=== PATIENT | male | born 1955 | race African-American/Black ===

== ENCOUNTER 2020-03-07 07:09 | Inpatient (IN) | payer BC ==
[2020-03-02 12:46] LABS: ABSOLUTE EOSINOPHILS # (AUTO) 0.2 10^3/uL (0.0-0.6); ABSOLUTE LYMPHOCYTES (AUTO) 2.3 10^3/uL (0.5-4.7); ABSOLUTE MONOCYTES (AUTO) 0.7 10^3/uL (0.1-1.4); ABSOLUTE NEUT (AUTO) 2.2 10^3/uL (1.7-8.2); BASOPHILS % (AUTO) 0.8 % (0-2); EOSINOPHILS % (AUTO) 3.2 % (0-6); HEMATOCRIT 45.1 % (37.9-51.0); HEMOGLOBIN 15.3 g/dL (13.5-17.0); LYMPHOCYTES % (AUTO) 42.4 % (13-45); MEAN CORPUSCULAR HEMOGLOBIN 30.8 pg (27.0-33.4); MEAN CORPUSCULAR HGB CONC 33.9 g/dL (32.0-36.0); MEAN CORPUSCULAR VOLUME 91 fl (80-97); MONOCYTES % (AUTO) 12.4 % (3-13); PLATELET COUNT 229 10^3/uL (150-450); RED BLOOD COUNT 4.97 10^6/uL (4.35-5.55); RED CELL DISTRIBUTION WIDTH 14.3 % (11.5-14.0); SEGMENTED NEUTROPHILS % (AUTO) 41.2 % (42-78); TOTAL CELLS COUNTED % (AUTO) 100 %; WHITE BLOOD COUNT 5.4 10^3/uL (4.0-10.5)
--- NOTE | 2020-03-02 13:02 | RADIOLOGY REPORT (SQ) ---
EXAM DESCRIPTION: CHEST PA/LATERAL IMAGES COMPLETED DATE/TIME: 03/02/2020 12:51 pm REASON FOR STUDY: PRE-OP COMPARISON: 08/07/2013. EXAM PARAMETERS: NUMBER OF VIEWS: two views TECHNIQUE: Digital Frontal and Lateral radiographic views of the chest acquired. RADIATION DOSE: NA LIMITATIONS: none FINDINGS: LUNGS AND PLEURA: No opacities, masses or pneumothorax. No pleural effusion. MEDIASTINUM AND HILAR STRUCTURES: No masses or contour abnormalities. HEART AND VASCULAR STRUCTURES: Heart normal size. No evidence for failure. BONES: No acute findings. HARDWARE: None in the chest. OTHER: No other significant finding. IMPRESSION: NO SIGNIFICANT RADIOGRAPHIC FINDING IN THE CHEST. TECHNICAL DOCUMENTATION: JOB ID: [id number] 2010 [employer]- All Rights Reserved Reading location - IP/workstation name: [email or web address]
[2020-03-02 13:04] LABS: ANION GAP 9 (5-19); BLOOD UREA NITROGEN 15 mg/dL (7-20); CALCIUM 9.9 mg/dL (8.4-10.2); CARBON DIOXIDE 28 mmol/L (22-30); CHLORIDE 102 mmol/L (98-107); GLUCOSE 104 mg/dL (75-110); POTASSIUM 4.2 mmol/L (3.6-5.0)
--- NOTE | 2020-03-02 19:04 | EKG REPORT ---
SEVERITY:- BORDERLINE ECG - SINUS RHYTHM PROBABLE LEFT ATRIAL ABNORMALITY : Confirmed by: Stacie Vargas MD 02-Mar-2020 19:03:40
[~2020-03-07 07:09] MED LIST: CEFAZOLIN 2 GM/D5W RTU 2 GM/50 ML RTUPB IV ONE; CEFAZOLIN 2 GM/D5W RTU 2 GM/50 ML RTUPB IV PRN; LACTATED RINGERS 1000 ML IV PRN; LIDOCAINE 0.5% INJ-PF (5 MG/ML) 50 ML SDV SUBCUT PRN
[2020-03-07] MEDS ORDERED: HEPARIN SOD (PORCINE) 1,000 UNIT/ML 10 ML VIAL ONE (10:14)
[2020-03-07] MEDS ORDERED: BUPIVACAINE INJ/PF LIPOSOME/PF 266 MG/20 ML SDV ONE (10:15)
[2020-03-07] MEDS ORDERED: BACITRACIN INJ 50,000 UNIT VIAL ONE (10:15)
[2020-03-07] MEDS ORDERED: MINERAL OIL (STERILE) 10 ML VIAL ONE (10:17)
[2020-03-07] MEDS ORDERED: ONDANSETRON HCL INJ/PF 4 MG/2 ML SDV ONE ×2 (10:17→12:20)
[2020-03-07] MEDS ORDERED: DEXAMETHASONE SOD PHOSPHATE INJ 4 MG/1 ML VIAL ONE ×2 (10:17→12:20)
[2020-03-07] MEDS ORDERED: PROPOFOL 2,000 MG/200 ML INFUS..BTL IV ONE (10:17)
[2020-03-07] MEDS ORDERED: HYDROMORPHONE HCL INJ/PF 2 MG/ML AMPULE ONE (10:17)
[2020-03-07] MEDS ORDERED: FENTANYL CITRATE INJ/PF 100 MCG/2 ML AMPUL ONE (10:17)
[2020-03-07] MEDS ORDERED: BUPIVACAINE HCL 0.5 % INJ/PF 30 ML SDV ONE (10:19)
[2020-03-07] MEDS ORDERED: MIDAZOLAM 2 MG/2 ML INJ ONE (10:31)
[2020-03-07] MEDS ORDERED: OXYCODONE-ACETAMINOPHEN 5-325 MG TABLET PO PRN ×2 (10:56)
[2020-03-07] MEDS ORDERED: MORPHINE SULFATE 10 MG/ML INJ IV PRN (10:56)
[2020-03-07] MEDS ORDERED: ONDANSETRON HCL INJ/PF 4 MG/2 ML SDV IV PRN (10:56)
[2020-03-07] MEDS ORDERED: PROMETHAZINE HCL INJ 25 MG/1 ML VIAL IV PRN ×2 (10:56)
[2020-03-07] MEDS ORDERED: FENTANYL CITRATE INJ/PF 100 MCG/2 ML AMPUL IV PRN ×3 (10:56)
[2020-03-07] MEDS ORDERED: MEPERIDINE HCL/PF INJ 25 MG/1 ML DISP.SYRIN IV PRN (10:56)
[2020-03-07] MEDS ORDERED: VASOPRESSIN INJ 20 UNIT/1 ML VIAL ONE (11:52)
[2020-03-07] MEDS ORDERED: EPHEDRINE SULFATE INJ 50 MG/1 ML AMPULE ONE (11:52)
[2020-03-07] MEDS ORDERED: METOCLOPRAMIDE HCL INJ/PF 10 MG/2 ML SDV ONE (12:20)
[2020-03-07] MEDS ORDERED: LIDOCAINE 2% INJ-PF (20 MG/ML) 2 ML AMPUL ONE (12:20)
[2020-03-07] MEDS ORDERED: ACETAMINOPHEN 1,000 MG/100 ML RTUPB IV ONE (12:34)
--- NOTE | 2020-03-07 14:42 | Operative Report ---
Operative Report DATE OF SURGERY: 03/07/20 PREOPERATIVE DIAGNOSIS: L3-4 and L4-5 and L5-S1 scoliosis and spondylolisthesis. Degenerative disc disease lumbar spine. Back pain. Instability. Progressive scoliosis. Lumbar radiculitis. Stenosis lumbar spine with neurogenic claudication POSTOPERATIVE DIAGNOSIS: L3-4 and L4-5 and L5-S1 scoliosis and spondylolisthesis. Degenerative disc disease lumbar spine. Back pain. Instability. Progressive scoliosis. Lumbar radiculitis. Stenosis lumbar spine with neurogenic claudication OPERATION: Anterior lateral interbody fusion L3-4 and L4-5 and L5-S1 with interbody spacers as well as posterior fusion and instrumentation robotically assisted at L3-4 L4-5 and L5-S1 as well as left iliac crest aspiration for bone marrow aspirate for concentration to be used and interbody spacers as well as allografting for the interbody spacers. SURGEON: SHELBY MCKEE 1ST DESIGN QUALITY ENGINEER: CHRISSY LOWE ANESTHESIA: GA ESTIMATED BLOOD LOSS: 450 cc of blood loss patient is given back 250 cc of Cell Saver PROCEDURE: Patient is brought into the room placed under general anesthesia received 2 g of Ancef within 1 hour of cut time was placed on the Eddie table medial epicondyles and axillary areas are well-padded. Neuro monitoring leads for SSEP and cranial motor testing are placed on the patient as well as a Gonzalez catheter is placed preoperatively. After appropriate surgical timeout the Friendfer robot is utilized and on the right posterior superior iliac spine a pin is placed and attached to the robot. After obtaining registration imaging in the AP and oblique position and verification 0.5 x 50 mm screws x6 and 7.5 x 40 mm screws x1 and 7.5 x 45 mm screws x1 screws are inserted using portal incisions on the right and the left at L3, L4, L5 and S1 bilaterally. Left iliac crest is aspirated at 2 different sites total of 50 cc of bone marrow aspirate are obtained and concentrated to be used an interbody spacer with the allograft. Attention was then paid to the left sided anterior lateral portal for entry into the disc space which is carried out under navigation guidance upon verification also with x-rays and then stimulation thresholds greater than 17 mA. Upon inserting the portal into the disc space at L3-4 and L4-5 and L5-S1 fluoroscopy was used to verify the position as it did also to verify the screws position. Endplate michael and curettes and brushes are used to carry out a complete discectomy then the verify balloon is inserted to verify good contact with the endplates. Incite cortical fibers/demineralized bone matrix with bone marrow aspirate concentrate are placed anterior in the disc space then the appropriate size mesh spacer is introduced into the interbody. The mesh spacer is soaked in bone marrow aspirate concentrate and is filled with bone graft showing good correction and good containment within the disc space at L3-4 and L4-5 and L5- S1. Upon neuro monitoring testing and cranial motor testing found to be stable then the portal is removed anterior laterally and attention is then paid to the placement of the rods upon using the caliper device the appropriate length rods were determined to be 40 mm rods on the right and on the left those are passed down and locked into position and final tightened. Then the tabs are removed and the portals are irrigated with copious amounts of irrigation and the posterior superior iliac spine pin connected to the robot is removed as well and the deep and superficial tissues were infiltrated with 1.3% Exparel 20 cc mixed with 20 cc of 0.5% bupivacaine plain. The portals are closed using 2-0 Vicryl and then Dermabond and Steri-Strips then 4 x 4's were used to cover the wounds on the right and the left and dressed with coverall tape. Please note that this procedure could not be done without the assistance of David Atkins working to assist with the placement of the screws positioning of the robot carrying out the aspiration through the left side iliac crest aspiration please also note that the iliac crest aspiration is carried out on the left side through a separate incision. David Lowe was instrumental throughout this whole process and I could not have done this procedure without his assistance as mentioned above.
[2020-03-07] MEDS ORDERED: ACETAMINOPHEN 325 MG TABLET PO PRN (14:44)
[2020-03-07] MEDS ORDERED: HYDROMORPHONE HCL INJ/PF 2 MG/ML AMPULE IV PRN (14:44)
[2020-03-07] MEDS ORDERED: PROMETHAZINE HCL INJ 25 MG/1 ML VIAL IM PRN (14:44)
[2020-03-07] MEDS ORDERED: ACETAMINOPHEN 650 MG SUPP.RECT PR PRN (14:44)
[2020-03-07] MEDS ORDERED: RINGERS SOLUTION,LACTATED 1,000 ML IV PRN (14:44)
[2020-03-07] MEDS ORDERED: PROMETHAZINE HCL 25 MG TABLET PO PRN (14:44)
[2020-03-07] MEDS ORDERED: DIPHENHYDRAMINE HCL 50 MG/ML VIAL IV PRN (14:44)
[2020-03-07] MEDS ORDERED: DIPHENHYDRAMINE HCL 25 MG CAPSULE PO PRN (14:44)
[2020-03-07] MEDS ORDERED: METHOCARBAMOL INJ/PF 1000 MG/10 ML SDV ONE (14:52)
--- NOTE | 2020-03-07 15:56 | RADIOLOGY REPORT (SQ) ---
EXAM DESCRIPTION: L SPINE 2 VIEWS; NO CHG FLUORO IMAGES COMPLETED DATE/TIME: 03/07/2020 2:55 pm REASON FOR STUDY: LUMBAR FUSION MULTIPLE LEVELS ASSISTED WITH FLUORO IN OR M54.5 LOW BACK PAIN M51. 36 OTHER INTERVERTEBRAL DISC DEGENERATION, LUMBAR REGION M54.40 LUMBAGO WITH SCIATICA, UNSPECIFIED SIDE COMPARISON: None. FLUOROSCOPY TIME: 3.5 minutes 4 fluoroscopic images images saved to PACS. TECHNIQUE: Intra-operative images acquired during surgical procedure to evaluate progress. NUMBER OF IMAGES: 4 fluoroscopic images LIMITATIONS: None. FINDINGS: Intra procedural imaging and fluoroscopy during lumbar fusion IMPRESSION: IMAGE(S) OBTAINED DURING PROCEDURE. COMMENT: Quality ID [id number]: Final reports for procedures using fluoroscopy that document radiation exp osure indices, or exposure time and number of fluorographic images (if radiation exposure indices are not available) Please consult full operative report of the attending physician for description of the procedure. TECHNICAL DOCUMENTATION: JOB ID: [id number] 2010 [employer]- All Rights Reserved Reading location - IP/workstation name: [email or web address]
--- NOTE | 2020-03-07 15:56 | RADIOLOGY REPORT (SQ) ---
EXAM DESCRIPTION: L SPINE 2 VIEWS; NO CHG FLUORO IMAGES COMPLETED DATE/TIME: 03/07/2020 2:55 pm REASON FOR STUDY: LUMBAR FUSION MULTIPLE LEVELS ASSISTED WITH FLUORO IN OR M54.5 LOW BACK PAIN M51. 36 OTHER INTERVERTEBRAL DISC DEGENERATION, LUMBAR REGION M54.40 LUMBAGO WITH SCIATICA, UNSPECIFIED SIDE COMPARISON: None. FLUOROSCOPY TIME: 3.5 minutes 4 fluoroscopic images images saved to PACS. TECHNIQUE: Intra-operative images acquired during surgical procedure to evaluate progress. NUMBER OF IMAGES: 4 fluoroscopic images LIMITATIONS: None. FINDINGS: Intra procedural imaging and fluoroscopy during lumbar fusion IMPRESSION: IMAGE(S) OBTAINED DURING PROCEDURE. COMMENT: Quality ID [id number]: Final reports for procedures using fluoroscopy that document radiation exp osure indices, or exposure time and number of fluorographic images (if radiation exposure indices are not available) Please consult full operative report of the attending physician for description of the procedure. TECHNICAL DOCUMENTATION: JOB ID: [id number] 2010 [employer]- All Rights Reserved Reading location - IP/workstation name: [email or web address]
[2020-03-07] MEDS: HYDROCODONE/ACETAMINOPHEN 5-325 MG TABLET PO PRN ×2 (16:22→21:04)
[2020-03-07] MEDS: ONDANSETRON HCL INJ/PF 4 MG/2 ML SDV IV PRN ×2 (16:23→22:39)
[2020-03-07] MEDS ORDERED: METFORMIN HCL 500 MG TABLET PO SCH (18:00)
[2020-03-07] MEDS ORDERED: (PENDING PHARMACY ID) (Gabapentin [Gabapentin] 800 MG) PO SCH (18:00)
[2020-03-07] MEDS: SENNOSIDES/DOCUSATE 8.6-50 MG 1 EACH TABLET PO SCH (18:29)
[2020-03-07] MEDS: TIZANIDINE HCL 4 MG TABLET PO SCH (18:30)
[2020-03-07] MEDS: MORPHINE SULFATE 10 MG/ML INJ IM PRN ×2 (18:36→22:37)
[2020-03-07] MEDS: CEFAZOLIN SODIUM 2 GM in DEXTROSE 5%-WATER 100 ML IV SCH (21:04)
[2020-03-07] MEDS: GABAPENTIN 400 MG CAPSULE PO SCH (21:05)
[2020-03-07] MEDS ORDERED: SIMVASTATIN 10 MG TABLET PO SCH (22:00)
[2020-03-07] MEDS ORDERED: CEFAZOLIN 2 GM/D5W RTU 2 GM/50 ML RTUPB IV SCH (22:00)
[2020-03-07] MEDS: TEMAZEPAM 15 MG CAPSULE PO SCH (22:37)
[2020-03-08] MEDS: OXYCODONE-ACETAMINOPHEN 5-325 MG TABLET PO PRN ×3 (01:25→10:18)
[2020-03-08] MEDS: MORPHINE SULFATE 10 MG/ML INJ IM PRN (03:03)
[2020-03-08] MEDS: CEFAZOLIN SODIUM 2 GM in DEXTROSE 5%-WATER 100 ML IV SCH (05:27)
[2020-03-08 05:44] LABS: HEMATOCRIT 40.4 % (37.9-51.0); HEMOGLOBIN 13.9 g/dL (13.5-17.0); MEAN CORPUSCULAR HEMOGLOBIN 30.7 pg (27.0-33.4); MEAN CORPUSCULAR HGB CONC 34.3 g/dL (32.0-36.0); MEAN CORPUSCULAR VOLUME 90 fl (80-97); PLATELET COUNT 190 10^3/uL (150-450); RED BLOOD COUNT 4.51 10^6/uL (4.35-5.55); RED CELL DISTRIBUTION WIDTH 14.2 % (11.5-14.0); WHITE BLOOD COUNT 7.2 10^3/uL (4.0-10.5)
[2020-03-08] MEDS: ONDANSETRON HCL INJ/PF 4 MG/2 ML SDV IV PRN (07:43)
[2020-03-08] MEDS: TAMSULOSIN HCL 0.4 MG CAP.SR.24H PO SCH (07:52)
[2020-03-08] MEDS ORDERED: POTASSIUM CHLORIDE 20 MEQ PACKET PO SCH (10:00)
[2020-03-08] MEDS ORDERED: PANTOPRAZOLE SODIUM 20 MG TABLET.DR PO SCH (10:00)
[2020-03-08] MEDS ORDERED: HYDROCHLOROTHIAZIDE 25 MG TABLET PO SCH (10:00)
[2020-03-08] MEDS ORDERED: POTASSIUM CHLORIDE 10 MEQ TABLET.ER PO SCH ×2 (10:00)
[2020-03-08] MEDS ORDERED: DIAZEPAM 2 MG TABLET PO SCH (10:00)
[2020-03-08] MEDS ORDERED: (PENDING PHARMACY ID) (Losartan Potassium [Losartan Potassium] 100 MG) PO SCH (10:00)
[2020-03-08] MEDS ORDERED: TAMSULOSIN HCL 0.4 MG CAP.SR.24H PO SCH (10:00)
[2020-03-08] MEDS: LOSARTAN POTASSIUM 50 MG TABLET PO SCH (10:16)
[2020-03-08] MEDS: FINASTERIDE 5 MG TABLET PO SCH (10:16)
[2020-03-08] MEDS: SENNOSIDES/DOCUSATE 8.6-50 MG 1 EACH TABLET PO SCH ×2 (10:17→17:25)
[2020-03-08] MEDS: TIZANIDINE HCL 4 MG TABLET PO SCH ×3 (10:17→17:25)
[2020-03-08] MEDS: GABAPENTIN 400 MG CAPSULE PO SCH ×2 (10:18→21:22)
[2020-03-08] MEDS: DULOXETINE HCL 30 MG CAPSULE.DR PO SCH (10:18)
[2020-03-08] MEDS: DIAZEPAM 5 MG TABLET PO SCH (10:18)
[2020-03-08] MEDS: PANTOPRAZOLE SODIUM 20 MG TABLET.DR PO SCH (10:25)
--- NOTE | 2020-03-08 13:58 | PDOC PROGRESS REPORT ---
Subjective Progress Note for:: 03/08/20 Subjective:: Patient is laying bed reporting that he is feeling well. He reports that he had just voided two urinals full of urine. He reports that he has not yet eaten but has been able to ambulate with PT. Reason For Visit: LUMBAR SPONDYLOLISTHESIS,LUMBAR STENOSIS,LUMBAR Physical Exam Vital Signs: Temp Pulse Resp BP Pulse Ox 98.9 F 103 H 18 107/59 L 94 03/08/20 11:30 03/08/20 11:30 03/08/20 11:30 03/08/20 11:30 03/08/20 11:30 Intake & Output 03/07/20 03/08/20 03/09/20 06:59 06:59 06:59 Intake Total 4175 380 Output Total 2875 Balance 1300 380 Weight 98.8 kg General appearance: PRESENT: no acute distress, cooperative, well-nourished Head exam: PRESENT: atraumatic Eye exam: PRESENT: EOMI, PERRLA Ear exam: PRESENT: normal external ear exam Mouth exam: PRESENT: moist Gentrourinary exam: PRESENT: other - catheter has been removed Musculoskeletal exam: PRESENT: other - Moves feet without pain or difficulty, calves are soft and non-tender. surgical dressing is intact with no drainage. normal post operative tenderness is noted. Neurological exam: PRESENT: alert, awake Results Laboratory Results: 03/08/20 04:31 03/07/20 07:39 03/08/20 04:31 WBC 7.2 RBC 4.51 Hgb 13.9 Hct 40.4 MCV 90 MCH 30.7 MCHC 34.3 RDW 14.2 H Plt Count 190 Impressions: Chest X-Ray 03/02/20 00:00 IMPRESSION: NO SIGNIFICANT RADIOGRAPHIC FINDING IN THE CHEST. Fluoroscopy 03/07/20 00:00 IMPRESSION: IMAGE(S) OBTAINED DURING PROCEDURE. Lumbar Spine X-Ray 03/07/20 00:00 IMPRESSION: IMAGE(S) OBTAINED DURING PROCEDURE. Assessment & Plan - Time Time Spent with patient: Less than 15 minutes - Plan Summary Plan Summary: POD 1 : Patient is doing well Cont. with PT per protocol as tolerated consider D/C home tomorrow if cleared by PT - patient reports some difficulty with stairs. Caregiver reports that she was going to get him a cheeseburger to try and get him to eat.
[2020-03-08] MEDS ORDERED: TAMSULOSIN HCL 0.4 MG CAP.SR.24H PO ONE (15:30)
[2020-03-08 16:02] LABS: ABSOLUTE LYMPHOCYTES (AUTO) 1.2 10^3/uL (0.5-4.7); TOTAL CELLS COUNTED % (AUTO) 100 %
[2020-03-08 16:19] LABS: ALBUMIN 3.7 g/dL (3.5-5.0); ALKALINE PHOSPHATASE 48 U/L (38-126); ANION GAP 8 (5-19); ASPARTATE AMINO TRANSFERASE 80 U/L (17-59); BILIRUBIN,TOTAL 1.1 mg/dL (0.2-1.3); BLOOD UREA NITROGEN 17 mg/dL (7-20); CALCIUM 9.4 mg/dL (8.4-10.2); CARBON DIOXIDE 25 mmol/L (22-30); CHLORIDE 102 mmol/L (98-107); GLUCOSE 115 mg/dL (75-110); POTASSIUM 3.8 mmol/L (3.6-5.0); TOTAL PROTEIN 6.3 g/dL (6.3-8.2)
--- NOTE | 2020-03-08 16:19 | RADIOLOGY REPORT (SQ) ---
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 NUMBER OF VIEWS: One view. TECHNIQUE: Supine radiographic image of the abdomen acquired. LIMITATIONS: None. FINDINGS: BOWEL GAS PATTERN: Normal bowel gas pattern. No dilated loops. CALCIFICATIONS: No suspicious calcifications. SOFT TISSUES: No gross mass or suggestion of organomegaly. HARDWARE: Surgical clips. Hardware in the spine. BONES: No acute fracture. No worrisome bone lesions. OTHER: No other significant finding. IMPRESSION: NO RADIOGRAPHIC EVIDENCE FOR ACUTE ABDOMINAL DISEASE. TECHNICAL DOCUMENTATION: JOB ID: [id number] 2010 [employer]- All Rights Reserved Reading location - IP/workstation name: [email or web address]
[2020-03-08 16:20] LABS: ABSOLUTE NEUT (AUTO) 5.6 10^3/uL (1.7-8.2); BASOPHILS % (AUTO) 0.3 % (0-2); EOSINOPHILS % (AUTO) 0.3 % (0-6); HEMATOCRIT 38.9 % (37.9-51.0); HEMOGLOBIN 12.9 g/dL (13.5-17.0); LYMPHOCYTES % (AUTO) 14.9 % (13-45); MEAN CORPUSCULAR HGB CONC 33.1 g/dL (32.0-36.0); MEAN CORPUSCULAR VOLUME 91 fl (80-97); MONOCYTES % (AUTO) 12.5 % (3-13); PLATELET COUNT 186 10^3/uL (150-450); RED BLOOD COUNT 4.29 10^6/uL (4.35-5.55); RED CELL DISTRIBUTION WIDTH 13.9 % (11.5-14.0); WHITE BLOOD COUNT 7.8 10^3/uL (4.0-10.5)
[2020-03-08] MEDS ORDERED: MAGNESIUM SULFATE/D5W 1 GM/100 ML RTUPB IV ONE (16:28)
[2020-03-08] MEDS ORDERED: NORMAL SALINE 1000 ML 500 ML IV ONE (16:29)
[2020-03-08] MEDS ORDERED: DEXTROSE 40% GEL 15 GM TUBE PO PRN ×2 (16:37)
[2020-03-08] MEDS ORDERED: DEXTROSE 50%-WATER 25 GM/50 ML DISP.SYRIN IV PRN ×2 (16:37)
[2020-03-08] MEDS ORDERED: GLUCAGON,HUMAN RECOMB 1 MG INJ SUBCUT PRN (16:37)
[2020-03-08] MEDS ORDERED: HYDROCODONE/ACETAMINOPHEN 5-325 MG TABLET PO PRN (16:43)
--- NOTE | 2020-03-08 17:06 | PDOC CONSULTATION ---
Consultation Consult Date: 03/08/20 Provider Consulted: CHARO TRIANA Consult reason:: hypotension History of Present Illness Admission Date/PCP: 03/07/20 07:09 GIBRAN GARCIA MD Patient complains of: hypotension History of Present Illness: LUIS ONEIL is a 64 year old male with a past medical history significant for HTN, HLD, DM2, DDD s/p lumbar fusion by [facility] on 03/07/20. He is POD #1. The hospitalist service is consulted after rapid response was called for hypotension (80/50) noted after the patient appeared to have pre-syncopal symptoms while up to rest room. The patient was provided an IVF bolus (1L LR) with improvement of BP to 108/70 partially through he bolus. At time of my visit, patient remains diaphoretic and fatigued. His primary complaint presently is back pain. He reports anorexia, mild nausea without emesis, frequent burping and no flatus or passage of stool since prior to his surgery. He reports generalized improvement that is slightly improved following placement of rowley catheter and immediate removal of ~150ml. KUB shows dilated colon but without acute findings. CBC shows post operative anemia (Hgb 15-> 13-> 12). Chemistry demonstrates PAYAM (Cr 1.26-> 1.65). EKG is NSR w/o ST segment changes or acute findings. Troponin is nml Past Medical History Cardiac Medical History: Reports: Hyperlipidema, Hypertension Denies: Congestive Heart Failure, Myocardial Infarction Pulmonary Medical History: Reports: Sleep Apnea - CPAP EENT Medical History: Reports: None Neurological Medical History: Denies: Ischemic CVA, Seizures Endocrine Medical History: Reports: Diabetes Mellitus Type 2, Obesity Denies: Hyperthyroidism, Hypothyroidism Renal/ Medical History: Reports: None Malignancy Medical History: Reports: None Denies: Lung Cancer GI Medical History: Reports: Gastroesophageal Reflux Disease Denies: Crohn's Disease, Hiatal Hernia Musculoskeltal Medical History: Reports: Arthritis Denies: Fibromyalgia Skin Medical History: Reports: None Psychiatric Medical History: Denies: Depression, Tobacco Dependency Traumatic Medical History: Reports: None Hematology: Reports: None Infectious Medical History: Reports: None Past Surgical History Past Surgical History: Reports: Orthopedic Surgery - neck 07/2013 Social History Information Source: Patient Lives with: Spouse/Significant other Smoking Status: Never Smoker Frequency of Alcohol Use: Occasional Hx Recreational Drug Use: No Hx Prescription Drug Abuse: No - Advance Directive Resuscitation Status: Full Code Family History Family History: Reviewed & Not Pertinent, Hyperlipidemia, Hypertension Parental Family History Reviewed: Yes Children Family History Reviewed: Yes Sibling(s) Family History Reviewed.: Yes Medication/Allergy Home Medications: Finasteride [Proscar 5 mg Tablet] 5 mg PO DAILY 06/03/12 Potassium Chloride 8 meq PO DAILY 06/03/12 Cyclobenzaprine HCl [Flexeril 10 mg Tablet] 10 mg PO BID PRN 06/06/12 Diazepam [Valium] 5 mg PO DAILY 08/30/15 Duloxetine HCl [Cymbalta] 60 mg PO DAILY 08/30/15 Omeprazole 20 mg PO DAILY 08/30/15 Hydrochlorothiazide 25 mg PO DAILY 08/31/15 Losartan Potassium 100 mg PO DAILY 08/31/15 Baclofen [Baclofen 10 mg Tablet] 10 mg PO DAILY 03/02/20 Gabapentin 800 mg PO BID 03/02/20 Meclizine HCl 12.5 mg PO PRN PRN 03/02/20 Metaxalone [Metaxall] 800 mg PO DAILY 03/02/20 Tamsulosin HCl [Flomax] 0.4 mg PO DAILY 03/02/20 Temazepam [Restoril 15 mg Capsule] 15 mg PO QHS 03/02/20 Metformin HCl [Metformin HCl ER] 1,000 mg PO QPM 03/07/20 Metformin HCl [Metformin HCl ER] 500 mg PO QAM 03/07/20 Simvastatin [Zocor 40 mg Tablet] 40 mg PO QHS 03/07/20 Allergies/Adverse Reactions: No Known Allergies Allergy (Verified 03/07/20 07:43) Review of Systems Constitutional: PRESENT: weakness. ABSENT: chills, fever(s), headache(s), weight gain, weight loss Eyes: ABSENT: visual disturbances Ears: ABSENT: hearing changes Cardiovascular: ABSENT: chest pain, dyspnea on exertion, edema, orthropnea, palpitations Respiratory: ABSENT: cough, hemoptysis Gastrointestinal: PRESENT: abdominal pain, bloating, constipation, nausea. ABSENT: diarrhea, hematemesis, hematochezia, vomiting Genitourinary: ABSENT: dysuria, hematuria Musculoskeletal: PRESENT: back pain. ABSENT: joint swelling Integumentary: ABSENT: rash, wounds Neurological: ABSENT: abnormal gait, abnormal speech, confusion, dizziness, focal weakness, syncope Psychiatric: ABSENT: anxiety, depression, homidical ideation, suicidal ideation Endocrine: ABSENT: cold intolerance, heat intolerance, polydipsia, polyuria Hematologic/Lymphatic: ABSENT: easy bleeding, easy bruising Physical Exam Vital Signs: Temp Pulse Resp BP Pulse Ox 98.9 F 103 H 18 107/59 L 94 03/08/20 11:30 03/08/20 11:30 03/08/20 11:30 03/08/20 11:30 03/08/20 11:30 Intake & Output 03/07/20 03/08/20 03/09/20 06:59 06:59 06:59 Intake Total 4175 380 Output Total 2875 Balance 1300 380 Weight 98.8 kg General appearance: PRESENT: no acute distress, cooperative, well-developed, well-nourished Head exam: PRESENT: atraumatic, normocephalic Eye exam: PRESENT: conjunctiva pink, EOMI, PERRLA. ABSENT: scleral icterus Ear exam: PRESENT: normal external ear exam Mouth exam: PRESENT: moist, tongue midline Respiratory exam: PRESENT: clear to auscultation jessica, symmetrical, unlabored. ABSENT: rales, rhonchi, wheezes Cardiovascular exam: PRESENT: RRR, +S1, +S2. ABSENT: diastolic murmur, rubs, systolic murmur Pulses: PRESENT: normal dorsalis pedis pul Vascular exam: PRESENT: normal capillary refill GI/Abdominal exam: PRESENT: distended, firm, hyperactive bowel sounds, tenderness. ABSENT: guarding, mass, organolmegaly, rebound Rectal exam: PRESENT: deferred Extremities exam: PRESENT: full ROM. ABSENT: calf tenderness, clubbing, pedal edema Neurological exam: PRESENT: alert, awake, oriented to person, oriented to place, oriented to time, oriented to situation, CN II-XII grossly intact. ABSENT: motor sensory deficit Psychiatric exam: PRESENT: appropriate affect, normal mood. ABSENT: homicidal ideation, suicidal ideation Skin exam: PRESENT: dry, intact, warm, other - diaphoretic. ABSENT: cyanosis, rash Results Laboratory Results: 03/08/20 04:31 WBC 7.2 RBC 4.51 Hgb 13.9 Hct 40.4 MCV 90 MCH 30.7 MCHC 34.3 RDW 14.2 H Plt Count 190 Impressions: Chest X-Ray 03/02/20 00:00 IMPRESSION: NO SIGNIFICANT RADIOGRAPHIC FINDING IN THE CHEST. Fluoroscopy 03/07/20 00:00 IMPRESSION: IMAGE(S) OBTAINED DURING PROCEDURE. Lumbar Spine X-Ray 03/07/20 00:00 IMPRESSION: IMAGE(S) OBTAINED DURING PROCEDURE. Assessment and Plan - Diagnosis (1) PAYAM (acute kidney injury) Is this a current diagnosis for this admission?: Yes Plan: Likely prerenal secondary to poor p.o. intake and hypotension. He is received a 1 L IV fluid bolus. We will provide additional IV fluids. Avoid nephrotoxic medications as able. Follow-up chemistry. (2) Hypotension Qualifiers: Hypotension type: unspecified hypotension type Qualified Code(s): I95.9 - Hypotension, unspecified Is this a current diagnosis for this admission?: Yes Plan: IV fluid bolus followed by maintenance fluids. Orthostatic blood pressures every shift. Fall precautions. About the code temperature midway through. (3) Pre-syncope Is this a current diagnosis for this admission?: Yes Plan: Likely vasovagal secondary to abdominal distention, multiple sedating medications, pain related to recent surgery, and urinary retention. EKG is benign. Initial troponin is negative; will continue to trend. Remaining management as above. (4) HTN (hypertension) Is this a current diagnosis for this admission?: Yes Plan: Home antihypertensives currently on hold secondary to hypotension/presyncopal episode. Monitor for blood pressure and resume once appropriate. (5) HLD (hyperlipidemia) Is this a current diagnosis for this admission?: Yes Plan: Home dose atorvastatin. (6) Diabetes Qualifiers: Diabetes mellitus type: type 2 Diabetes mellitus halfway insulin use: without halfway use Is this a current diagnosis for this admission?: Yes Plan: Holding oral medications while admitted. Accu-Cheks before meals and at bedtime with Humalog for sliding scale coverage. Hypoglycemia protocol in place. (7) Fusion of lumbar spine Is this a current diagnosis for this admission?: Yes Plan: Primary management per Dr. Cuellar. - Time Time Spent with patient: 35 or more minutes Medications reviewed and adjusted accordingly: Yes Anticipated discharge: Home Within: within 48 hours
[2020-03-08] MEDS: HYDROCODONE/ACETAMINOPHEN 5-325 MG TABLET PO PRN ×2 (17:24→23:24)
--- NOTE | 2020-03-08 18:41 | EKG REPORT ---
SEVERITY:- ABNORMAL ECG - SINUS RHYTHM PROBABLE INFERIOR INFARCT, POSTERIOR WALL INFARCT, OLD : Confirmed by: Holden Granados MD 08-Mar-2020 18:41:21
[2020-03-08] MEDS: TEMAZEPAM 15 MG CAPSULE PO SCH (21:22)
[2020-03-08] MEDS: INSULIN LISPRO 100 UNIT/ML 3 ML VIAL SUBCUT SCH (21:30)
[2020-03-08] MEDS: NORMAL SALINE 1000 ML 1,000 ML IV PRN (23:24)
[2020-03-09] MEDS: HYDROCODONE/ACETAMINOPHEN 5-325 MG TABLET PO PRN ×3 (05:24→14:56)
[2020-03-09] MEDS: PANTOPRAZOLE SODIUM 20 MG TABLET.DR PO SCH (05:25)
[2020-03-09] MEDS: INSULIN LISPRO 100 UNIT/ML 3 ML VIAL SUBCUT SCH ×4 (07:40→22:11)
[2020-03-09] MEDS: NORMAL SALINE 1000 ML 1,000 ML IV PRN ×2 (08:15→22:14)
--- NOTE | 2020-03-09 08:21 | PDOC PROGRESS REPORT ---
Subjective Progress Note for:: 03/08/20 Reason For Visit: LUMBAR SPONDYLOLISTHESIS,LUMBAR STENOSIS,LUMBAR Physical Exam Vital Signs: Temp Pulse Resp BP Pulse Ox 98.7 F 101 H 18 111/72 98 03/09/20 04:59 03/09/20 04:59 03/09/20 04:59 03/09/20 04:59 03/09/20 04:59 Intake & Output 03/08/20 03/09/20 03/10/20 06:59 06:59 06:59 Intake Total 4175 2730 1000 Output Total 2875 2300 Balance 7535 719 2860 Weight 98.8 kg 101.8 kg General appearance: PRESENT: no acute distress, cooperative Musculoskeletal exam: PRESENT: other - dressing saturated with blood Results Laboratory Results: 03/08/20 15:44 03/08/20 15:44 03/08/20 03/08/20 15:44 15:44 WBC 7.8 RBC 4.29 L Hgb 12.9 L Hct 38.9 MCV 91 MCH 30.0 MCHC 33.1 RDW 13.9 Plt Count 186 Seg Neutrophils % 72.0 Sodium 135.0 L Potassium 3.8 Chloride 102 Carbon Dioxide 25 Anion Gap 8 BUN 17 Creatinine 1.65 H Est GFR ( Amer) 51 L Glucose 115 H Calcium 9.4 Magnesium 1.5 L Total Bilirubin 1.1 AST 80 H Alkaline Phosphatase 48 Total Protein 6.3 Albumin 3.7 03/08/20 15:44 Troponin I < 0.012 Impressions: Chest X-Ray 03/02/20 00:00 IMPRESSION: NO SIGNIFICANT RADIOGRAPHIC FINDING IN THE CHEST. Fluoroscopy 03/07/20 00:00 IMPRESSION: IMAGE(S) OBTAINED DURING PROCEDURE. Lumbar Spine X-Ray 03/07/20 00:00 IMPRESSION: IMAGE(S) OBTAINED DURING PROCEDURE. KUB X-Ray 03/08/20 00:00 IMPRESSION: NO RADIOGRAPHIC EVIDENCE FOR ACUTE ABDOMINAL DISEASE. Assessment & Plan - Time Time Spent with patient: Less than 15 minutes - Plan Summary Plan Summary: POD 1 Returned to bedside for dressing change - dressing was taken down and new applied. no active bleeding is noted Rapid responce team was called - initial assessment is vagal response appreciate hospitalist input. will cont. to follow
--- NOTE | 2020-03-09 09:08 | PDOC DISCHARGE SUMMARY ---
General - Admit/Disc Date/PCP Admission Date/Primary Care Provider: 03/07/20 07:09 Discharge Date: 03/09/20 - Discharge Diagnosis Final Diagnosis: Status post L3-4 L4-5 L5-S1 fusion with instrumentation interbody spacers and allograft. - Additional Information Resuscitation Status: Full Code Discharge Diet: As Tolerated Discharge Activity: No Driving, No Lifting Over 10 Pounds, No Lifting/Push/Pulling Referrals: GIBRAN GARCIA MD [Primary Care Provider] - Prescriptions: Oxycodone HCl [Roxicodone] 5 mg PO Q4HP PRN 7 Days #40 tablet PRN Reason: For Pain Scale 3-5 Tizanidine HCl [Zanaflex 4 mg Tablet] 4 mg PO TID 30 Days #90 tablet Home Medications: Finasteride [Proscar 5 mg Tablet] 5 mg PO DAILY 06/03/12 Potassium Chloride 8 meq PO DAILY 06/03/12 Duloxetine HCl [Cymbalta] 60 mg PO DAILY 08/30/15 Omeprazole 20 mg PO DAILY 08/30/15 Hydrochlorothiazide 25 mg PO DAILY 08/31/15 Losartan Potassium 100 mg PO DAILY 08/31/15 Gabapentin 800 mg PO BID 03/02/20 Meclizine HCl 12.5 mg PO PRN PRN 03/02/20 Metaxalone [Metaxall] 800 mg PO DAILY 03/02/20 Tamsulosin HCl [Flomax] 0.4 mg PO DAILY 03/02/20 Temazepam [Restoril 15 mg Capsule] 15 mg PO QHS 03/02/20 Metformin HCl [Metformin HCl ER] 1,000 mg PO QPM 03/07/20 Metformin HCl [Metformin HCl ER] 500 mg PO QAM 03/07/20 Simvastatin [Zocor 40 mg Tablet] 40 mg PO QHS 03/07/20 Acetaminophen [Tylenol 325 mg Tablet] 650 mg PO Q6HP PRN tablet 03/09/20 Finasteride [Proscar 5 mg Tablet] 5 mg PO DAILY tablet 03/09/20 Glucagon,Human Recombinant [Glucagen Inj 1 mg Vial] 1 mg SUBCUT PRN PRN vial 03/09/20 Insulin Lispro [Humalog Insulin (Lispro) 100 unit/mL] 0 - 12 unit SUBCUT ACHS u nit 03/09/20 Lidocaine [Lidoderm 5% (700 mg) Transdermal Patch] 1 patch TP DAILY adh..patch 03/09/20 Oxycodone HCl [Roxicodone] 5 mg PO Q4HP PRN 7 Days #40 tablet 03/09/20 Tizanidine HCl [Zanaflex 4 mg Tablet] 4 mg PO TID 30 Days #90 tablet 03/09/20 History of Present Illiness History of Present Illness: LUIS ONEIL is a 64 year old male Physical Exam Vital Signs: Temp Pulse Resp BP Pulse Ox 98.3 F 93 16 129/73 H 97 03/09/20 07:28 03/09/20 07:28 03/09/20 07:28 03/09/20 07:28 03/09/20 07:28 Intake & Output 03/08/20 03/09/20 03/10/20 06:59 06:59 06:59 Intake Total 4175 2730 1000 Output Total 2875 2300 Balance 1050 742 7630 Weight 98.8 kg 101.8 kg Results Laboratory Results: WBC 7.8 10^3/uL (4.0-10.5) 03/08/20 15:44 RBC 4.29 10^6/uL (4.35-5.55) L 03/08/20 15:44 Hgb 12.9 g/dL (13.5-17.0) L 03/08/20 15:44 Hct 38.9 % (37.9-51.0) 03/08/20 15:44 MCV 91 fl (80-97) 03/08/20 15:44 MCH 30.0 pg (27.0-33.4) 03/08/20 15:44 MCHC 33.1 g/dL (32.0-36.0) 03/08/20 15:44 RDW 13.9 % (11.5-14.0) 03/08/20 15:44 Plt Count 186 10^3/uL (150-450) 03/08/20 15:44 Lymph % (Auto) 14.9 % (13-45) 03/08/20 15:44 Foster % (Auto) 12.5 % (3-13) 03/08/20 15:44 Eos % (Auto) 0.3 % (0-6) 03/08/20 15:44 Baso % (Auto) 0.3 % (0-2) 03/08/20 15:44 Absolute Neuts (auto) 5.6 10^3/uL (1.7-8.2) 03/08/20 15:44 Absolute Lymphs (auto) 1.2 10^3/uL (0.5-4.7) 03/08/20 15:44 Absolute Monos (auto) 1.0 10^3/uL (0.1-1.4) 03/08/20 15:44 Absolute Eos (auto) 0.0 10^3/uL (0.0-0.6) 03/08/20 15:44 Absolute Basos (auto) 0.0 10^3/uL (0.0-0.2) 03/08/20 15:44 Seg Neutrophils % 72.0 % (42-78) 03/08/20 15:44 Sodium 135.0 mmol/L (137-145) L 03/08/20 15:44 Potassium 3.8 mmol/L (3.6-5.0) 03/08/20 15:44 Chloride 102 mmol/L (98-107) 03/08/20 15:44 Carbon Dioxide 25 mmol/L (22-30) 03/08/20 15:44 Anion Gap 8 (5-19) 03/08/20 15:44 BUN 17 mg/dL (7-20) 03/08/20 15:44 Creatinine 1.65 mg/dL (0.52-1.25) H 03/08/20 15:44 Est GFR ( Amer) 51 (>60) L 03/08/20 15:44 Est GFR (MDRD) Non-Af 42 (>60) L 03/08/20 15:44 Glucose 115 mg/dL (75-110) H 03/08/20 15:44 POC Glucose 118 mg/dL (70-110) H 03/09/20 06:38 Calcium 9.4 mg/dL (8.4-10.2) 03/08/20 15:44 Magnesium 1.5 mg/dL (1.6-2.3) L 03/08/20 15:44 Total Bilirubin 1.1 mg/dL (0.2-1.3) 03/08/20 15:44 Direct Bilirubin 0.0 mg/dL (0.0-0.4) 03/08/20 15:44 Neonat Total Bilirubin Not Reportable 03/08/20 15:44 Neonat Direct Bilirubin Not Reportable 03/08/20 15:44 Neonat Indirect Bili Not Reportable 03/08/20 15:44 AST 80 U/L (17-59) H 03/08/20 15:44 ALT 38 U/L (<50) 03/08/20 15:44 Alkaline Phosphatase 48 U/L (38-126) 03/08/20 15:44 Troponin I < 0.012 ng/mL 03/08/20 15:44 Total Protein 6.3 g/dL (6.3-8.2) 03/08/20 15:44 Albumin 3.7 g/dL (3.5-5.0) 03/08/20 15:44 COVID-19 Source NASOPHARYNGEAL 03/02/20 11:52 COVID-19 (TAMY) NOT DETECTED 03/02/20 11:52 Blood Type O POSITIVE 03/07/20 07:39 Antibody Screen NEGATIVE 03/07/20 07:39 03/08/20 15:44 Troponin I < 0.012 Impressions: Chest X-Ray 03/02/20 00:00 IMPRESSION: NO SIGNIFICANT RADIOGRAPHIC FINDING IN THE CHEST. Fluoroscopy 03/07/20 00:00 IMPRESSION: IMAGE(S) OBTAINED DURING PROCEDURE. Lumbar Spine X-Ray 03/07/20 00:00 IMPRESSION: IMAGE(S) OBTAINED DURING PROCEDURE. KUB X-Ray 03/08/20 00:00 IMPRESSION: NO RADIOGRAPHIC EVIDENCE FOR ACUTE ABDOMINAL DISEASE.
[2020-03-09 09:42] LABS: ANION GAP 5 (5-19); BLOOD UREA NITROGEN 14 mg/dL (7-20); CALCIUM 8.7 mg/dL (8.4-10.2); CARBON DIOXIDE 26 mmol/L (22-30); CHLORIDE 104 mmol/L (98-107); GLUCOSE 199 mg/dL (75-110); POTASSIUM 3.4 mmol/L (3.6-5.0)
[2020-03-09] MEDS ORDERED: MIDODRINE HCL 5 MG TABLET PO ONE (09:45)
[2020-03-09] MEDS: FINASTERIDE 5 MG TABLET PO SCH (10:08)
[2020-03-09] MEDS: TIZANIDINE HCL 4 MG TABLET PO SCH ×2 (10:08→18:07)
[2020-03-09] MEDS: SENNOSIDES/DOCUSATE 8.6-50 MG 1 EACH TABLET PO SCH ×2 (10:09→18:07)
[2020-03-09] MEDS: GABAPENTIN 400 MG CAPSULE PO SCH (10:09)
[2020-03-09] MEDS: TAMSULOSIN HCL 0.4 MG CAP.SR.24H PO SCH (10:09)
[2020-03-09] MEDS: DIAZEPAM 5 MG TABLET PO SCH (10:09)
[2020-03-09] MEDS: DULOXETINE HCL 30 MG CAPSULE.DR PO SCH (10:09)
[2020-03-09] MEDS: LOSARTAN POTASSIUM 50 MG TABLET PO SCH (10:10)
[2020-03-09] MEDS: LIDOCAINE 5% (700 MG) TRANSDERMAL ADH..PATCH TP SCH (10:16)
[2020-03-09] MEDS: GABAPENTIN 300 MG CAPSULE PO SCH ×2 (14:56→22:14)
--- NOTE | 2020-03-09 16:44 | PDOC PROGRESS REPORT ---
Subjective Progress Note for:: 03/09/20 Subjective:: LUIS ONEIL is a 64 year old male with a past medical history significant for HTN, HLD, DM2, DDD s/p lumbar fusion by [facility] on 03/07/20. He is POD #2. Patient was seen briefly on morning rounds and again this afternoon. Discussed with Dr. Cuellar; patient is ready to discharge from his perspective. Unfortunately, the patient continued to have dramatic orthostatic hypotension. Therefore, his discharge was canceled and he will remain in house for additional evaluation and management. Patient does report dizziness and generalized weakness upon standing. He denies chest pain, palpitations, dyspnea. He further denies fever, abdominal pain, nausea and vomiting. He is passing gas, no bm. Primary complaint remains back pain. He has no other questions or concerns. No concerns per nursing. Reason For Visit: LUMBAR SPONDYLOLISTHESIS,LUMBAR STENOSIS,LUMBAR Physical Exam Vital Signs: Temp Pulse Resp BP Pulse Ox 98.8 F 87 18 109/68 98 03/09/20 14:56 03/09/20 14:56 03/09/20 14:56 03/09/20 14:56 03/09/20 14:56 Intake & Output 03/08/20 03/09/20 03/10/20 06:59 06:59 06:59 Intake Total 4175 2730 1000 Output Total 2875 2300 Balance 9372 143 3027 Weight 98.8 kg 101.8 kg General appearance: PRESENT: no acute distress, cooperative, well-developed, well-nourished Head exam: PRESENT: atraumatic, normocephalic Eye exam: PRESENT: conjunctiva pink, EOMI, PERRLA. ABSENT: scleral icterus Mouth exam: PRESENT: moist, tongue midline Respiratory exam: PRESENT: clear to auscultation jessica, symmetrical, unlabored. ABSENT: rales, rhonchi, wheezes Cardiovascular exam: PRESENT: RRR, +S1, +S2. ABSENT: diastolic murmur, rubs, systolic murmur Pulses: PRESENT: normal dorsalis pedis pul Vascular exam: PRESENT: normal capillary refill GI/Abdominal exam: PRESENT: distended - decreased from yesterday, normal bowel sounds, soft. ABSENT: guarding, mass, organolmegaly, rebound, tenderness Rectal exam: PRESENT: deferred Extremities exam: PRESENT: full ROM. ABSENT: calf tenderness, clubbing, pedal edema Musculoskeletal exam: PRESENT: tenderness - low back pain Neurological exam: PRESENT: alert, awake, oriented to person, oriented to place, oriented to time, oriented to situation, CN II-XII grossly intact. ABSENT: motor sensory deficit Psychiatric exam: PRESENT: appropriate affect, normal mood. ABSENT: homicidal ideation, suicidal ideation Skin exam: PRESENT: dry, intact, warm. ABSENT: cyanosis, rash Results Laboratory Results: 03/08/20 15:44 03/09/20 08:49 03/09/20 03/09/20 08:49 08:49 Sodium 134.5 L Potassium 3.4 L Chloride 104 Carbon Dioxide 26 Anion Gap 5 BUN 14 Creatinine 1.01 Est GFR ( Amer) > 60 Glucose 199 H Calcium 8.7 TSH 0.07 L 03/08/20 15:44 Troponin I < 0.012 Impressions: Chest X-Ray 03/02/20 00:00 IMPRESSION: NO SIGNIFICANT RADIOGRAPHIC FINDING IN THE CHEST. Fluoroscopy 03/07/20 00:00 IMPRESSION: IMAGE(S) OBTAINED DURING PROCEDURE. Lumbar Spine X-Ray 03/07/20 00:00 IMPRESSION: IMAGE(S) OBTAINED DURING PROCEDURE. KUB X-Ray 03/08/20 00:00 IMPRESSION: NO RADIOGRAPHIC EVIDENCE FOR ACUTE ABDOMINAL DISEASE. Assessment and Plan - Diagnosis (1) PAYAM (acute kidney injury) Is this a current diagnosis for this admission?: Yes Plan: Resolved. Likely prerenal secondary to poor p.o. intake and hypotension. He is received a 1 L IV fluid bolus. Continue gentle IV fluids. Avoid nephrotoxic medications as able. Follow-up chemistry. (2) Hypotension Qualifiers: Hypotension type: unspecified hypotension type Qualified Code(s): I95.9 - Hypotension, unspecified Is this a current diagnosis for this admission?: Yes Plan: Continues to have profound orthostatic hypotension. Continue maintenance fluids. Orthostatic blood pressures every shift. Start Midodrin. Patient is on multiple medications that could be contributing to his low blood pressures; have reduced tizanidine, gabapentin losartan and HCTZ. Have rescheduled his daily Valium to nightly from a.m. Holding parameters on his blood pressure medications. Thyroid panel, random and a.m. cortisol pending. Fall precautions. (3) Pre-syncope Is this a current diagnosis for this admission?: Yes Plan: Likely vasovagal secondary to abdominal distention, multiple sedating medications, pain related to recent surgery, and urinary retention. EKG is benign. Troponin negative. Remaining management as above. (4) HTN (hypertension) Is this a current diagnosis for this admission?: Yes Plan: Home antihypertensives currently on hold secondary to hypotension/presyncopal episode. Doses have been reduced with holding parameters placed. Monitor for blood pressure and resume once appropriate. (5) HLD (hyperlipidemia) Is this a current diagnosis for this admission?: Yes Plan: Home dose atorvastatin. (6) Diabetes Qualifiers: Diabetes mellitus type: type 2 Diabetes mellitus keno terminal operator insulin use: without keno terminal operator use Is this a current diagnosis for this admission?: Yes Plan: Holding oral medications while admitted. Accu-Cheks before meals and at bedtime with Humalog for sliding scale coverage. Hypoglycemia protocol in place. (7) Fusion of lumbar spine Is this a current diagnosis for this admission?: Yes Plan: Primary management per Dr. Cuellar. - Time Time Spent with patient: 35 or more minutes Medications reviewed and adjusted accordingly: Yes Anticipated discharge: Home
[2020-03-09 17:12] LABS: FREE T3 3.37 pg/mL (2.77-5.27); FREE T4 (FREE THYROXINE) 1.62 ng/dL (0.78-2.19)
[2020-03-09] MEDS: MIDODRINE HCL 5 MG TABLET PO SCH (18:07)
[2020-03-09] MEDS ORDERED: GABAPENTIN 400 MG CAPSULE PO SCH (22:00)
[2020-03-09] MEDS: TEMAZEPAM 15 MG CAPSULE PO SCH (22:14)
[2020-03-10] MEDS: HYDROCODONE/ACETAMINOPHEN 5-325 MG TABLET PO PRN (01:26)
[2020-03-10] MEDS: PANTOPRAZOLE SODIUM 20 MG TABLET.DR PO SCH (05:22)
[2020-03-10 07:17] LABS: ANION GAP 5 (5-19); BLOOD UREA NITROGEN 12 mg/dL (7-20); CALCIUM 8.9 mg/dL (8.4-10.2); CARBON DIOXIDE 28 mmol/L (22-30); CHLORIDE 104 mmol/L (98-107); GLUCOSE 115 mg/dL (75-110); POTASSIUM 3.3 mmol/L (3.6-5.0)
[2020-03-10] MEDS: INSULIN LISPRO 100 UNIT/ML 3 ML VIAL SUBCUT SCH ×2 (07:38→12:59)
[2020-03-10] MEDS ORDERED: POTASSIUM CHLORIDE 10 MEQ TABLET.ER PO ONE (07:42)
[2020-03-10] MEDS: TAMSULOSIN HCL 0.4 MG CAP.SR.24H PO SCH (09:59)
[2020-03-10] MEDS: GABAPENTIN 300 MG CAPSULE PO SCH (09:59)
[2020-03-10] MEDS: FINASTERIDE 5 MG TABLET PO SCH (09:59)
[2020-03-10] MEDS: MIDODRINE HCL 5 MG TABLET PO SCH (09:59)
[2020-03-10] MEDS: TIZANIDINE HCL 4 MG TABLET PO SCH (09:59)
[2020-03-10] MEDS: DULOXETINE HCL 30 MG CAPSULE.DR PO SCH (09:59)
[2020-03-10] MEDS ORDERED: LOSARTAN POTASSIUM 50 MG TABLET PO SCH (10:00)
[2020-03-10] MEDS: LIDOCAINE 5% (700 MG) TRANSDERMAL ADH..PATCH TP SCH (10:00)
[2020-03-10] MEDS ORDERED: HYDROCHLOROTHIAZIDE 25 MG TABLET PO SCH (10:00)
[2020-03-10] MEDS: SENNOSIDES/DOCUSATE 8.6-50 MG 1 EACH TABLET PO SCH (10:06)
--- NOTE | 2020-03-10 10:51 | PDOC DISCHARGE SUMMARY ---
Impression - Admit/DC Date/PCP Admission Date/Primary Care Provider: 03/07/20 07:09 GIBRAN GARCIA MD Discharge Date: 03/10/20 - Discharge Diagnosis (1) Orthostatic hypotension Is this a current diagnosis for this admission?: Yes (2) PAYAM (acute kidney injury) Is this a current diagnosis for this admission?: Yes (3) Hypotension Is this a current diagnosis for this admission?: Yes (4) Pre-syncope Is this a current diagnosis for this admission?: Yes (5) HTN (hypertension) Is this a current diagnosis for this admission?: Yes (6) HLD (hyperlipidemia) Is this a current diagnosis for this admission?: Yes (7) Diabetes Is this a current diagnosis for this admission?: Yes (8) Fusion of lumbar spine Is this a current diagnosis for this admission?: Yes (9) Urinary retention Is this a current diagnosis for this admission?: Yes - Additional Information Resuscitation Status: Full Code Discharge Diet: As Tolerated Discharge Activity: No Driving, No Lifting Over 10 Pounds, No Lifting/ Push/Pulling Referrals: GIBRAN GARCIA MD [Primary Care Provider] - 03/15/20 2:00 pm (CALL TO CANCEL IF YOU CANNOT MAKE THIS APPT.) SHELBY MCKEE MD [ASSOCIATE] - 03/16/20 9:50 am JUSTIN MAXWELL [NO LOCAL MD] - 03/15/20 9:30 am ([facility]- ARRIVE AT 0915 FOR CHECK-IN ) Prescriptions: Losartan Potassium [Cozaar 50 mg Tablet] 50 mg PO DAILY #30 tablet Hydrochlorothiazide [Hydrodiuril 25 mg Tablet] 12.5 mg PO DAILY #14 tablet Gabapentin [Neurontin 300 mg Capsule] 600 mg PO Q12 #60 capsule Midodrine HCl [Proamatine 5 mg Tablet] 10 mg PO TID #84 tablet Oxycodone HCl [Roxicodone] 5 mg PO Q4HP PRN 7 Days #40 tablet PRN Reason: For Pain Scale 3-5 Home Medications: Finasteride [Proscar 5 mg Tablet] 5 mg PO DAILY 06/03/12 Potassium Chloride 8 meq PO DAILY 06/03/12 Duloxetine HCl [Cymbalta] 60 mg PO DAILY 08/30/15 Omeprazole 20 mg PO DAILY 08/30/15 Metaxalone [Metaxall] 800 mg PO DAILY 03/02/20 Tamsulosin HCl [Flomax] 0.4 mg PO DAILY 03/02/20 Temazepam [Restoril 15 mg Capsule] 15 mg PO QHS 03/02/20 Metformin HCl [Metformin HCl ER] 1,000 mg PO QPM 03/07/20 Metformin HCl [Metformin HCl ER] 500 mg PO QAM 03/07/20 Simvastatin [Zocor 40 mg Tablet] 40 mg PO QHS 03/07/20 Acetaminophen [Tylenol 325 mg Tablet] 650 mg PO Q6HP PRN tablet 03/09/20 Finasteride [Proscar 5 mg Tablet] 5 mg PO DAILY tablet 03/09/20 Glucagon,Human Recombinant [Glucagen Inj 1 mg Vial] 1 mg SUBCUT PRN PRN vial 03/09/20 Insulin Lispro [Humalog Insulin (Lispro) 100 unit/mL] 0 - 12 unit SUBCUT ACHS unit 03/09/20 Lidocaine [Lidoderm 5% (700 mg) Transdermal Patch] 1 patch TP DAILY adh..patch 03/09/20 Oxycodone HCl [Roxicodone] 5 mg PO Q4HP PRN 7 Days #40 tablet 03/09/20 Diazepam [Valium 5 mg Tablet] 5 mg PO QHS tablet 03/10/20 Gabapentin [Neurontin 300 mg Capsule] 600 mg PO Q12 #60 capsule 03/10/20 Hydrochlorothiazide [Hydrodiuril 25 mg Tablet] 12.5 mg PO DAILY #14 tablet 03/10/20 Losartan Potassium [Cozaar 50 mg Tablet] 50 mg PO DAILY #30 tablet 03/10/20 Midodrine HCl [Proamatine 5 mg Tablet] 10 mg PO TID #84 tablet 03/10/20 Tizanidine HCl [Zanaflex 4 mg Tablet] 2 mg PO TID tablet 03/10/20 History of Present Illiness History of Present Illness: LUIS ONEIL is a 64 year old male with a past medical history significant for HTN, HLD, DM2, DDD s/p lumbar fusion by [facility] on 03/07/20. He is POD #1. The hospitalist service is consulted after rapid response was called for hypotension (80/50) noted after the patient appeared to have pre-syncopal symptoms while up to rest room. The patient was provided an IVF bolus (1L LR) with improvement of BP to 108/70 partially through he bolus. At time of my visit, patient remains diaphoretic and fatigued. His primary complaint presently is back pain. He reports anorexia, mild nausea without emesis, frequent burping and no flatus or passage of stool since prior to his surgery. He reports generalized improvement that is slightly improved following placement of rowley catheter and immediate removal of ~150ml. KUB shows dilated colon but without acute findings. CBC shows post operative anemia (Hgb 15-> 13-> 12). Chemistry demonstrates PAYAM (Cr 1.26-> 1.65). EKG is NSR w/o ST segment changes or acute findings. Troponin is nml Hospital Course Hospital Course: (1) PAYAM (acute kidney injury) Resolved. Likely prerenal secondary to poor p.o. intake and hypotension. He is received fluid bolus followed by IV fluids. (2) Hypotension Continues to have orthostatic hypotension; though much improved and without symptoms. Thyroid panel, random and a.m. cortisol are normal. Started Midodrin. Patient is on multiple medications that could be contributing to his low blood pressures. Have recommended decreased dose of tizanidine, gabapentin, losartan and HCTZ. Recommend rescheduled of daily Valium to qHS. (3) Pre-syncope Likely vasovagal/orthostatic hypertension secondary to abdominal distention, multiple sedating medications, pain related to recent surgery, and urinary retention. EKG is benign. Troponin negative. Remaining management as above. (4) HTN (hypertension) Home antihypertensives are reduced secondary to hypotension/presyncopal episode. (5) HLD (hyperlipidemia) Home dose atorvastatin. (6) Diabetes Resume outpatient regiment. (7) Fusion of lumbar spine Primary management per Dr. Mckee. Follow up plan as previous arranged. Physical Exam Vital Signs: Temp Pulse Resp BP Pulse Ox 100.0 F 95 16 136/70 H 95 03/10/20 07:17 03/10/20 07:17 03/10/20 07:17 03/10/20 07:17 03/10/20 07:17 Intake & Output 03/09/20 03/10/20 03/11/20 06:59 06:59 06:59 Intake Total 2730 2100 Output Total 2300 700 Balance 430 1400 Weight 101.8 kg 101.2 kg General appearance: PRESENT: no acute distress, cooperative, well-developed, well-nourished Head exam: PRESENT: atraumatic, normocephalic Eye exam: PRESENT: conjunctiva pink, EOMI, PERRLA. ABSENT: scleral icterus Mouth exam: PRESENT: moist, tongue midline Respiratory exam: PRESENT: clear to auscultation jessica, symmetrical, unlabored. ABSENT: rales, rhonchi, wheezes Cardiovascular exam: PRESENT: RRR, +S1. ABSENT: diastolic murmur, rubs, systolic murmur Pulses: PRESENT: normal dorsalis pedis pul Vascular exam: PRESENT: normal capillary refill Gentrourinary exam: PRESENT: indwelling catheter Extremities exam: PRESENT: full ROM. ABSENT: calf tenderness, clubbing, pedal edema Musculoskeletal exam: PRESENT: ambulatory - ~300' with FWW Neurological exam: PRESENT: alert, awake, oriented to person, oriented to place, oriented to time, oriented to situation, CN II-XII grossly intact. ABSENT: motor sensory deficit Psychiatric exam: PRESENT: anxious, appropriate affect, normal mood. ABSENT: ho micidal ideation, suicidal ideation Skin exam: PRESENT: dry, intact, warm. ABSENT: cyanosis, rash Results Laboratory Results: WBC 7.8 10^3/uL (4.0-10.5) 03/08/20 15:44 RBC 4.29 10^6/uL (4.35-5.55) L 03/08/20 15:44 Hgb 12.9 g/dL (13.5-17.0) L 03/08/20 15:44 Hct 38.9 % (37.9-51.0) 03/08/20 15:44 MCV 91 fl (80-97) 03/08/20 15:44 MCH 30.0 pg (27.0-33.4) 03/08/20 15:44 MCHC 33.1 g/dL (32.0-36.0) 03/08/20 15:44 RDW 13.9 % (11.5-14.0) 03/08/20 15:44 Plt Count 186 10^3/uL (150-450) 03/08/20 15:44 Lymph % (Auto) 14.9 % (13-45) 03/08/20 15:44 [place]uster % (Auto) 12.5 % (3-13) 03/08/20 15:44 Eos % (Auto) 0.3 % (0-6) 03/08/20 15:44 Baso % (Auto) 0.3 % (0-2) 03/08/20 15:44 Absolute Neuts (auto) 5.6 10^3/uL (1.7-8.2) 03/08/20 15:44 Absolute Lymphs (auto) 1.2 10^3/uL (0.5-4.7) 03/08/20 15:44 Absolute Monos (auto) 1.0 10^3/uL (0.1-1.4) 03/08/20 15:44 Absolute Eos (auto) 0.0 10^3/uL (0.0-0.6) 03/08/20 15:44 Absolute Basos (auto) 0.0 10^3/uL (0.0-0.2) 03/08/20 15:44 Seg Neutrophils % 72.0 % (42-78) 03/08/20 15:44 Sodium 136.9 mmol/L (137-145) L 03/10/20 06:25 Potassium 3.3 mmol/L (3.6-5.0) L 03/10/20 06:25 Chloride 104 mmol/L (98-107) 03/10/20 06:25 Carbon Dioxide 28 mmol/L (22-30) 03/10/20 06:25 Anion Gap 5 (5-19) 03/10/20 06:25 BUN 12 mg/dL (7-20) 03/10/20 06:25 Creatinine 0.90 mg/dL (0.52-1.25) 03/10/20 06:25 Est GFR ( Amer) > 60 (>60) 03/10/20 06:25 Est GFR (MDRD) Non-Af > 60 (>60) 03/10/20 06:25 Glucose 115 mg/dL (75-110) H 03/10/20 06:25 POC Glucose 110 mg/dL (70-110) 03/10/20 06:28 Calcium 8.9 mg/dL (8.4-10.2) 03/10/20 06:25 Magnesium 1.5 mg/dL (1.6-2.3) L 03/08/20 15:44 Total Bilirubin 1.1 mg/dL (0.2-1.3) 03/08/20 15:44 Direct Bilirubin 0.0 mg/dL (0.0-0.4) 03/08/20 15:44 Neonat Total Bilirubin Not Reportable 03/08/20 15:44 Neonat Direct Bilirubin Not Reportable 03/08/20 15:44 Neonat Indirect Bili Not Reportable 03/08/20 15:44 AST 80 U/L (17-59) H 03/08/20 15:44 ALT 38 U/L (<50) 03/08/20 15:44 Alkaline Phosphatase 48 U/L (38-126) 03/08/20 15:44 Troponin I < 0.012 ng/mL 03/08/20 15:44 Total Protein 6.3 g/dL (6.3-8.2) 03/08/20 15:44 Albumin 3.7 g/dL (3.5-5.0) 03/08/20 15:44 TSH 0.07 uIU/mL (0.47-4.68) L 03/09/20 08:49 Free T4 1.62 ng/dL (0.78-2.19) 03/09/20 08:49 Free T3 pg/mL 3.37 pg/mL (2.77-5.27) 03/09/20 08:49 Random Cortisol 11.00 ug/dL (None Established) 03/09/20 08:49 Cortisol AM Sample 26.40 ug/dL (4.46-22.7) H 03/10/20 06:25 COVID-19 Source NASOPHARYNGEAL 03/02/20 11:52 COVID-19 (TAMY) NOT DETECTED 03/02/20 11:52 Blood Type O POSITIVE 03/07/20 07:39 Antibody Screen NEGATIVE 03/07/20 07:39 03/08/20 15:44 Troponin I < 0.012 Impressions: Chest X-Ray 03/02/20 00:00 IMPRESSION: NO SIGNIFICANT RADIOGRAPHIC FINDING IN THE CHEST. Fluoroscopy 03/07/20 00:00 IMPRESSION: IMAGE(S) OBTAINED DURING PROCEDURE. Lumbar Spine X-Ray 03/07/20 00:00 IMPRESSION: IMAGE(S) OBTAINED DURING PROCEDURE. KUB X-Ray 03/08/20 00:00 IMPRESSION: NO RADIOGRAPHIC EVIDENCE FOR ACUTE ABDOMINAL DISEASE. Plan Plan of Treatment: See Dr. Mckee' D/C summary for detailed follow up plan. In addition, recommend dose reduction of medications as mentioned above and continued Midodrine until follow up appointment with PCP. May benefit from cardiology referral, echocardiogram, and/or Tilt table testing if orthostatic blood pressures persist. Time Spent: Less than 30 Minutes Stroke Is this a Stroke Patient?: No Acute Heart Failure - Is this a Heart Failure Patient?: No
[2020-03-10 11:42] VITALS: BP 132/79
[2020-03-10] MEDS ORDERED: DIAZEPAM 5 MG TABLET PO SCH (22:00)
== END 2020-03-10 13:46 | disposition home health service (06) | DRG 454 ==
LOC: INOR 07:09 → 4N 15:54
PROVIDERS: ADMIT Orthopaedic Surgery; ATTEND Orthopaedic Surgery
PROC: 0SG Lower Joints, Fusion (ICD-10-PCS; 2020-03-07)
PROC: 0SG33A0 Fusion of Lumbosacral Joint with Interbody Fusion Device, Anterior Approach, Anterior Column, Percutaneous Approach (ICD-10-PCS; 2020-03-07)
PROC: 0ST20ZZ Resection of Lumbar Vertebral Disc, Open Approach (ICD-10-PCS; 2020-03-07)
PROC: 0ST40ZZ Resection of Lumbosacral Disc, Open Approach (ICD-10-PCS; 2020-03-07)
PROC: 0SG Lower Joints, Fusion (ICD-10-PCS; 2020-03-07)
PROC: 07DR3ZZ Extraction of Iliac Bone Marrow, Percutaneous Approach (ICD-10-PCS; 2020-03-07)
PROC: 4A1134G Monitoring of Peripheral Nervous Electrical Activity, Intraoperative, Percutaneous Approach (ICD-10-PCS; 2020-03-07)
PROC: 8E0W3CZ Robotic Assisted Procedure of Trunk Region, Percutaneous Approach (ICD-10-PCS; 2020-03-07)
PROC: 0SG13A0 Fusion of 2 or more Lumbar Vertebral Joints with Interbody Fusion Device, Anterior Approach, Anterior Column, Percutaneous Approach (ICD-10-PCS; principal; 2020-03-07 09:30)
DX: M48.062 Spinal stenosis, lumbar region with neurogenic claudication (principal); N17.9 Acute kidney failure, unspecified; M43.17 Spondylolisthesis, lumbosacral region; M51.36 Other intervertebral disc degeneration, lumbar region; M41.9 Scoliosis, unspecified; M54.16 Radiculopathy, lumbar region; I10 Essential (primary) hypertension; E78.5 Hyperlipidemia, unspecified; E11.9 Type 2 diabetes mellitus without complications; I95.1 Orthostatic hypotension; Z79.4 Long term (current) use of insulin; Z79.899 Other long term (current) drug therapy; R33.0 Drug induced retention of urine; T42.75XA Adverse effect of unspecified antiepileptic and sedative-hypnotic drugs, initial encounter; Y92.230 Patient room in hospital as the place of occurrence of the external cause; E66.9 Obesity, unspecified; M19.90 Unspecified osteoarthritis, unspecified site
CPT/HCPCS: 00630; 36415; 71046; 72100; 74018; 80048; 80053; 82533; 82947; 82962; 83735; 84132; 84439; 84443; 84481; 84484; 85025; 85027; 86850; 86900; 86901; 87070; 87635; 93005; 93010; 94660; 94760; 94799; C9290; C9803; J0131; J0690; J1100; J1170; J1644; J2250; J2270; J2405; J2704; J2765; J2800; J3010; J3475; J3490; J7030; J7060; J7120